=== PATIENT | male | born 1990 | race Caucasian/White ===

== ENCOUNTER 2017-02-09 20:44 | Emergency (ER) | payer OTHER ==
[2017-02-09 20:54] VITALS: BP 120/73; PULSE 66; RESP 20; TEMP 98.6; O2SAT 95
--- NOTE | 2017-02-09 23:16 | EDPHY ---
H & P Time Seen by Provider: 02/09/17 22:04 HPI/ROS: CHIEF COMPLAINT: Chin laceration, right thumb injury HISTORY OF PRESENT ILLNESS: 26-year-old male presents to the emergency department by private vehicle with a chin laceration. The patient was playing basketball and fell hitting his chin on the ground. He did not lose consciousness. He denies pain in his jaw or his teeth. Denies headache. Denies neck or back pain. Denies chest pain or difficulty breathing. Denies abdominal pain. The patient also has pain in his right thumb. He is right- hand dominant. His pain is right thumb especially with movement. REVIEW OF SYSTEMS: Constitutional: No fever, no chills. Eyes: No double or blurry vision. ENT: No sore throat. Respiratory: No cough, no shortness of breath. Cardiac: No chest pain. Gastrointestinal: No abdominal pain, vomiting or diarrhea. Genitourinary: No dysuria. Musculoskeletal: No neck or back pain. Skin: Laceration. No rashes. Neurological: No headache. Past Medical/Surgical History: Single Social History: Single from [place] Smoking Status: Never smoked Physical Exam: General Appearance: Alert, no distress. Mentating normally and answering questions appropriately. Eyes: Pupils equal and round. Extraocular motions are all intact. ENT: Mouth: Mucous membranes moist. No dental injury or malocclusion. Respiratory: No wheezing, rhonchi, or rales, lungs are clear to auscultation. Cardiovascular: Regular rate and rhythm. Gastrointestinal: Abdomen is soft and nontender, no masses, no rebound or guarding, bowel sounds normal. Neurological: Alert and oriented x 3, cranial nerves II through XII grossly intact Skin: 1.5 cm right anterior chin laceration. Warm and dry, no rashes. Musculoskeletal: Nontender to palpate along the cervical, thoracic or lumbar spine. Neck is supple. Extremities: Full range of motion and no peripheral edema. Pain with palpation to the base of the 1st metacarpal. No rotational deformities noted. No palpable crepitus or other bony abnormality. He has full range of motion of his right thumb although this does cause pain. Full range of motion of the right wrist. Psychiatric: Patient is oriented X 3, there is no agitation. Constitutional: Initial Vital Signs Temperature (C) 37 C 02/09/17 20:52 Heart Rate 66 02/09/17 20:52 Respiratory Rate 20 02/09/17 20:52 Blood Pressure 120/73 02/09/17 20:52 O2 Sat (%) 95 02/09/17 20:52 O2 Delivery Mode Room Air Allergies/Adverse Reactions: No Known Allergies Allergy (Unverified 02/09/17 20:52) Home Medications: Medication Instructions Recorded NK [No Known Home Meds] 02/09/17 Medical Decision Making - Diagnostics Imaging Results: Imaging Impressions Finger X-Ray 02/09/17 22:20 Impression: Normal. No acute fracture. Procedures: Laceration repair. Verbal consent was obtained from the patient. The 1.5 cm laceration on the chin was anesthetized using 1% lidocaine with epinephrine. The wound was irrigated with saline, draped and explored to its base with a gloved finger. There were no deep structures involved. The wound was repaired with 6 0 Ethilon, 5 sutures. The wound repair was simple. The procedure was performed by myself. ED Course/Re-evaluation: 26-year-old male presents to the emergency department with chin laceration. Patient has no dental trauma. His wound was repaired, see procedure note. X-rays of the right thumb reveal no fractures. Differential Diagnosis: Head injury including but not limited to concussion, skull fracture, intraparenchymal contusion, subarachnoid, subdural and epidural hematoma. Right thumb pain including but not limited to sprain, fracture, dislocation, contusion Departure - Departure Disposition: Home, Routine, Self-Care Clinical Impression: Chin laceration Qualifiers: Encounter type: initial encounter Qualified Code(s): S01.81XA - Laceration without foreign body of other part of head, initial encounter Sprain of right thumb Qualifiers: Encounter type: initial encounter Sprain of finger site: unspecified site Qualified Code(s): S63.601A - Unspecified sprain of right thumb, initial encounter Condition: Good Instructions: Care For Your Stitches (ED), Laceration (ED), Finger Sprain (ED) , Acute Wounds (ED) Additional Instructions: Wound Care Follow-Up: Removal of sutures in 5 days. Suture removal is complimentary in uncomplicated cases. Infection or abnormal findings would require reevaluation by the MD. In that case, you may be billed. Activity as tolerated. Return if he notices any signs or symptoms of infection. Referrals: John,Abdoulaye G, MD [Medical Doctor] - 5-7 days, if not improved (Orthopedic hand surgeon on-call)
== END 2017-02-09 23:21 | disposition home or self-care (01) ==
PROC: 0HQ1XZZ Repair Face Skin, External Approach (ICD-10-PCS; principal; 2017-02-09)
DX: S01.81XA Laceration without foreign body of other part of head, initial encounter (principal); S63.601A Unspecified sprain of right thumb, initial encounter; W18.00XA Striking against unspecified object with subsequent fall, initial encounter; Y93.67 Activity, basketball